=== PATIENT | male | born 1945 | race Caucasian/White ===

== ENCOUNTER 2018-08-02 21:00 | Inpatient (IN) | payer MEDICARE, BC | END 2018-08-07 13:30 | disposition home or self-care (01) | LOC: PCU 3S 08-04 02:42 | PROC: 0JHD3XZ Insertion of Tunneled Vascular Access Device into Right Upper Arm Subcutaneous Tissue and Fascia, Percutaneous Approach (ICD-10-PCS; principal; 2018-08-05 08:32) | PROC: 03120ZD Bypass Innominate Artery to Upper Arm Vein, Open Approach (ICD-10-PCS; 2018-08-05 08:32) | PROC: 05HM33Z Insertion of Infusion Device into Right Internal Jugular Vein, Percutaneous Approach (ICD-10-PCS; 2018-08-05 08:32) | PROC: B543ZZA Ultrasonography of Right Jugular Veins, Guidance (ICD-10-PCS; 2018-08-05 08:32) | PROC: 5A1D70Z Performance of Urinary Filtration, Intermittent, Less than 6 Hours Per Day (ICD-10-PCS; 2018-08-05 08:32) | PROC: 03180ZF Bypass Left Brachial Artery to Lower Arm Vein, Open Approach (ICD-10-PCS; 2018-08-05 08:32) | DX: I12.9 Hypertensive chronic kidney disease with stage 1 through stage 4 chronic kidney disease, or unspecified chronic kidney disease (principal); N30.00 Acute cystitis without hematuria; N17.9 Acute kidney failure, unspecified; N18.4 Chronic kidney disease, stage 4 (severe); Z99.2 Dependence on renal dialysis ==

== ENCOUNTER 2018-11-19 06:19 | Day surgery (SDC) | payer MEDICARE, BC ==
[~2018-11-19] VITALS: Ht 180.3 cm; Wt 121.1 kg
[~2018-11-19 06:19] MED LIST: ALLO100T PO; ASPI-611 PO; ATOR20TA PO; CARV-50 PO; CHOL100062 PO; CLON-285 PO; CLON1PAT15 TOP; DILT180C PO; INSU100C10; LIRA0.6P2 SUBCUT; LISI40TA4 PO; TOP100T PO
[2018-11-19] MEDS ORDERED: normal saline 1000ml 1,000 ML IV SCH (06:45)
[2018-11-19 06:48] VITALS: BP 151/76
[2018-11-19] MEDS ORDERED: FURO80TA87 PO (06:49)
[2018-11-19] MEDS ORDERED: FOLI0.8T19 PO (06:49)
[2018-11-19] MEDS ORDERED: DILT-35 PO (06:49)
[2018-11-19 07:53] LABS: BASOPHILS # (AUTO) 0.1 X10'3 (0-0.2); BASOPHILS % (AUTO) 0.9 % (0-1); EOSINOPHILS # (AUTO) 0.3 X10'3 (0-0.9); EOSINOPHILS % (AUTO) 5.5 % (0-6); HEMATOCRIT 31.1 % (42.0-52.0); HEMOGLOBIN 10.7 g/dl (14.0-17.9); LYMPHOCYTES # (AUTO) 1.6 X10'3 (1.1-4.8); LYMPHOCYTES % (AUTO) 29.8 % (21-51); MEAN CORPUSCULAR HEMOGLOBIN 34.7 PG (27.0-31.0); MEAN CORPUSCULAR HGB CONC 34.3 g/dL (33.0-36.5); MEAN PLATELET VOLUME 7.5 FL (7.4-10.4); MONOCYTES # (AUTO) 0.6 X10'3 (0-0.9); MONOCYTES % (AUTO) 10.5 % (2-12); NEUTROPHILS # (AUTO) 2.9 X10'3 (1.8-7.7); NEUTROPHILS % (AUTO) 53.3 % (42-75); PLATELET COUNT 142 X10'3 (140-440); RED BLOOD COUNT 3.07 X10'6 (4.70-6.10); RED CELL DISTRIBUTION WIDTH 14.1 % (11.5-14.5); WHITE BLOOD COUNT 5.4 X10'3 (4.5-11.0)
[2018-11-19 08:00] LABS: ALBUMIN 3.3 G/DL (3.4-5.0); ANION GAP 8 (8-16); BLOOD UREA NITROGEN 76 MG/DL (7-18); BUN/CREATININE RATIO 9.2 (5.4-32.0); CALCIUM 9.1 MG/DL (8.5-10.1); CHLORIDE 105 MMOL/L (99-107); CREATININE 8.25 MG/DL (0.60-1.10); GLUCOSE 120 MG/DL (70-104); POTASSIUM 4.4 MMOL/L (3.5-5.1); SODIUM 143 MMOL/L (135-145); TOTAL CARBON DIOXIDE 29.8 MMOL/L (24-32); eGFR 6 ML/MIN
[2018-11-19] MEDS ORDERED: heparin 1,000 UNITS/NS 500ml 500 ML ICATH ONE (08:10)
[2018-11-19] MEDS ORDERED: midazolam 2 mg/2 ml injection IV PRN (08:10)
[2018-11-19] MEDS ORDERED: fentaNYL/PF 50MCG/1 ML 2ML syringe IV PRN (08:10)
[2018-11-19] MEDS ORDERED: LIDOcaine 1%/PF 5ML 10 MG/ML VIAL SQ ONE (08:10)
[2018-11-19] MEDS ORDERED: LIDOcaine 1%/PF 5ML 10 MG/ML VIAL ONE (08:46)
[2018-11-19] MEDS ORDERED: fentaNYL/PF 50MCG/1 ML 2ML syringe ONE ×2 (08:46→09:42)
[2018-11-19] MEDS ORDERED: midazolam 2 mg/2 ml injection ONE (08:46)
[2018-11-19] MEDS ORDERED: heparin 1,000 UNITS/NS 500ml 500 ML ONE (08:46)
[2018-11-19] MEDS ORDERED: iohexol 300mg/ml 100ml inj. ONE (08:47)
[2018-11-19 10:25] VITALS: BP 137/62
[2018-11-19 10:40] VITALS: BP 137/62
[2018-11-19 10:55] VITALS: BP 141/62
[2018-11-19 11:10] VITALS: BP 161/62
[2018-11-19 11:40] VITALS: BP 169/68
== END 2018-11-19 11:52 | disposition home or self-care (01) ==
LOC: SSTAY O 06:19
PROVIDERS: ATTEND Radiology Vascular & Interventional Radiology
DX: T82.858A Stenosis of other vascular prosthetic devices, implants and grafts, initial encounter (principal); E11.9 Type 2 diabetes mellitus without complications; Y83.8 Other surgical procedures as the cause of abnormal reaction of the patient, or of later complication, without mention of misadventure at the time of the procedure; Z88.8 Allergy status to other drugs, medicaments and biological substances; Z79.899 Other long term (current) drug therapy; Z79.82 Long term (current) use of aspirin; Z79.4 Long term (current) use of insulin; Z82.49 Family history of ischemic heart disease and other diseases of the circulatory system
CPT/HCPCS: 36415; 36902; 80048; 85025; 99152; 99153; C1725; C1769; C1894; J1644; J2001; J2250; J3010; Q9967

== ENCOUNTER 2020-06-04 06:26 | Day surgery (SDC) | payer MEDICARE, BC ==
[~2020-06-04] VITALS: Ht 180.3 cm; Wt 116.3 kg
[~2020-06-04 06:26] MED LIST changes: -CLON-285 PO; +CLON-565 PO; -CLON1PAT15 TOP; +DILT-35 PO; -DILT180C PO; +FOLI0.8T19 PO; +FURO80TA87 PO
[2020-06-04] MEDS ORDERED: albumin 25% 100mL bottle x 1 IV PRN (06:50)
[2020-06-04] MEDS ORDERED: normal saline 1000ml 1,000 ML IV PRN (06:50)
[2020-06-04 07:26] LABS: BASOPHILS % (AUTO) 0.8 % (0-1); EOSINOPHILS # (AUTO) 0.4 X10'3 (0-0.9); EOSINOPHILS % (AUTO) 7.8 % (0-6); HEMATOCRIT 30.4 % (42.0-52.0); HEMOGLOBIN 10.4 g/dl (14.0-17.9); LYMPHOCYTES # (AUTO) 1.3 X10'3 (1.1-4.8); LYMPHOCYTES % (AUTO) 22.7 % (21-51); MEAN CORPUSCULAR HGB CONC 34.4 g/dL (33.0-36.5); MEAN CORPUSCULAR VOLUME 101.5 FL (78-98); MEAN PLATELET VOLUME 7.5 FL (7.4-10.4); MONOCYTES # (AUTO) 0.5 X10'3 (0-0.9); MONOCYTES % (AUTO) 9.2 % (2-12); NEUTROPHILS # (AUTO) 3.3 X10'3 (1.8-7.7); NEUTROPHILS % (AUTO) 59.5 % (42-75); PLATELET COUNT 160 X10'3 (140-440); RED BLOOD COUNT 2.99 X10'6 (4.70-6.10); RED CELL DISTRIBUTION WIDTH 13.5 % (11.5-14.5); WHITE BLOOD COUNT 5.6 X10'3 (4.5-11.0)
[2020-06-04 08:13] LABS: ALBUMIN 3.5 G/DL (3.4-5.0); ANION GAP 12 (8-16); BLOOD UREA NITROGEN 38 MG/DL (7-18); CHLORIDE 104 MMOL/L (99-107); GLUCOSE 110 MG/DL (70-104); POTASSIUM 3.8 MMOL/L (3.5-5.1); SODIUM 143 MMOL/L (135-145); TOTAL CARBON DIOXIDE 27.1 MMOL/L (24-32); eGFR 10 ML/MIN
[2020-06-04] MEDS ORDERED: LIDOcaine 1%/PF 5ML 10 MG/ML VIAL ONE (08:22)
[2020-06-04] MEDS ORDERED: fentaNYL/PF 50MCG/1 ML 2ML syringe ONE (08:23)
[2020-06-04] MEDS ORDERED: heparin 1,000 UNITS/NS 500ml 500 ML ONE (08:23)
[2020-06-04] MEDS ORDERED: midazolam 2 mg/2 ml injection ONE (08:23)
[2020-06-04] MEDS ORDERED: iohexol 300mg/ml 100ml inj. ONE (08:23)
[2020-06-04 08:39] VITALS: BP 134/72
== END 2020-06-04 09:26 | disposition home or self-care (01) ==
LOC: SSTAY O 06:26
PROVIDERS: ATTEND Radiology Diagnostic Radiology
DX: T82.858A Stenosis of other vascular prosthetic devices, implants and grafts, initial encounter (principal); Z53.8 Procedure and treatment not carried out for other reasons; E11.22 Type 2 diabetes mellitus with diabetic chronic kidney disease; N18.6 End stage renal disease; N17.9 Acute kidney failure, unspecified; E78.5 Hyperlipidemia, unspecified; D63.1 Anemia in chronic kidney disease; Z98.890 Other specified postprocedural states; Z88.8 Allergy status to other drugs, medicaments and biological substances; Z79.82 Long term (current) use of aspirin; Z79.4 Long term (current) use of insulin; Z79.899 Other long term (current) drug therapy; Z83.3 Family history of diabetes mellitus; Y83.8 Other surgical procedures as the cause of abnormal reaction of the patient, or of later complication, without mention of misadventure at the time of the procedure; Y92.89 Other specified places as the place of occurrence of the external cause
CPT/HCPCS: 36415; 80048; 82948; 85025; J1644; J2250; J3010; Q9967

== ENCOUNTER 2020-07-02 06:36 | Day surgery (SDC) | payer MEDICARE, BC ==
[~2020-07-02] VITALS: Ht 180.3 cm; Wt 113.7 kg
[~2020-07-02 06:36] MED LIST changes: -CARV-50 PO; -DILT-35 PO; -LIRA0.6P2 SUBCUT; -LISI40TA4 PO
[2020-07-02 07:30] VITALS: BP 127/78
[2020-07-02] MEDS ORDERED: CALC667C5 PO (07:41)
[2020-07-02] MEDS ORDERED: LIRA0.6P2 SUBCUT (07:41)
[2020-07-02 07:45] LABS: BASOPHILS % (AUTO) 0.9 % (0-1); EOSINOPHILS # (AUTO) 0.3 X10'3 (0-0.9); EOSINOPHILS % (AUTO) 6.1 % (0-6); HEMOGLOBIN 12.5 g/dl (14.0-17.9); LYMPHOCYTES # (AUTO) 1.7 X10'3 (1.1-4.8); LYMPHOCYTES % (AUTO) 29.9 % (21-51); MEAN CORPUSCULAR HEMOGLOBIN 34.7 PG (27.0-31.0); MEAN CORPUSCULAR HGB CONC 33.8 g/dL (33.0-36.5); MEAN CORPUSCULAR VOLUME 102.5 FL (78-98); MEAN PLATELET VOLUME 7.5 FL (7.4-10.4); MONOCYTES # (AUTO) 0.5 X10'3 (0-0.9); MONOCYTES % (AUTO) 9.4 % (2-12); NEUTROPHILS # (AUTO) 3.1 X10'3 (1.8-7.7); NEUTROPHILS % (AUTO) 53.7 % (42-75); PLATELET COUNT 173 X10'3 (140-440); RED BLOOD COUNT 3.61 X10'6 (4.70-6.10); RED CELL DISTRIBUTION WIDTH 14.2 % (11.5-14.5); WHITE BLOOD COUNT 5.7 X10'3 (4.5-11.0)
[2020-07-02 07:50] LABS: ALBUMIN 4.1 G/DL (3.4-5.0); ANION GAP 10 (8-16); BLOOD UREA NITROGEN 39 MG/DL (7-18); CHLORIDE 102 MMOL/L (99-107); CREATININE 5.61 MG/DL (0.60-1.10); GLUCOSE 100 MG/DL (70-104); POTASSIUM 3.8 MMOL/L (3.5-5.1); SODIUM 141 MMOL/L (135-145); TOTAL CARBON DIOXIDE 29.4 MMOL/L (24-32); eGFR 10 ML/MIN
[2020-07-02] MEDS ORDERED: normal saline 1000ml 1,000 ML IV PRN (08:05)
[2020-07-02] MEDS ORDERED: tPA-cathflo 2 MG/2 ml IV flush ONE (08:28)
[2020-07-02] MEDS ORDERED: LIDOcaine 1%/PF 5ML 10 MG/ML VIAL ONE (08:59)
[2020-07-02] MEDS ORDERED: midazolam 2 mg/2 ml injection ONE ×3 (08:59→10:48)
[2020-07-02] MEDS ORDERED: heparin 1,000 UNITS/NS 500ml 500 ML ONE ×2 (09:00→10:33)
[2020-07-02] MEDS ORDERED: fentaNYL/PF 50MCG/1 ML 2ML syringe ONE ×3 (09:00→10:48)
[2020-07-02] MEDS ORDERED: iohexol 300mg/ml 100ml inj. ONE ×2 (09:00→10:33)
[2020-07-02] MEDS ORDERED: heparin 1,000unit/ml 10ml vial 10 ML ONE (10:02)
[2020-07-02] MEDS ORDERED: diphenhydrAMINE 50 mg/ml inj ONE (10:19)
[2020-07-02 11:34] VITALS: BP 165/92
[2020-07-02] MEDS ORDERED: normal saline 1000ml 1,000 ML IV SCH (11:35)
[2020-07-02 11:46] VITALS: BP 169/98
[2020-07-02 12:01] VITALS: BP 137/64
[2020-07-02 12:15] VITALS: BP 142/65
[2020-07-02 12:23] VITALS: BP 132/66
== END 2020-07-02 12:35 | disposition home or self-care (01) ==
LOC: SSTAY O 06:36
PROVIDERS: ATTEND Radiology Vascular & Interventional Radiology
DX: T82.868A Thrombosis due to vascular prosthetic devices, implants and grafts, initial encounter (principal); N18.6 End stage renal disease; Z99.2 Dependence on renal dialysis; D63.1 Anemia in chronic kidney disease; Z79.899 Other long term (current) drug therapy; Z79.4 Long term (current) use of insulin; Z72.89 Other problems related to lifestyle; Z88.8 Allergy status to other drugs, medicaments and biological substances; Y83.2 Surgical operation with anastomosis, bypass or graft as the cause of abnormal reaction of the patient, or of later complication, without mention of misadventure at the time of the procedure; Y92.89 Other specified places as the place of occurrence of the external cause
CPT/HCPCS: 36415; 36902; 76937; 80048; 85025; 85610; C1725; C1769; C1894; J1200; J1644; J2250; J2997; J3010; Q9967; 99152; 99153

== ENCOUNTER 2020-11-01 06:26 | Emergency (ER) | payer MEDICARE, BC ==
[~2020-11-01] VITALS: Ht 180.3 cm; Wt 114.5 kg
[~2020-11-01 06:26] MED LIST changes: +CALC667C5 PO; +LIRA0.6P2 SUBCUT
[2020-11-01 09:19] LABS: BASOPHILS % (AUTO) 0.6 % (0-1); EOSINOPHILS # (AUTO) 0.2 X10'3 (0-0.9); EOSINOPHILS % (AUTO) 3.5 % (0-6); HEMATOCRIT 30.4 % (42.0-52.0); HEMOGLOBIN 10.4 g/dl (14.0-17.9); LYMPHOCYTES # (AUTO) 0.8 X10'3 (1.1-4.8); LYMPHOCYTES % (AUTO) 14.9 % (21-51); MEAN CORPUSCULAR HEMOGLOBIN 35.3 PG (27.0-31.0); MEAN CORPUSCULAR HGB CONC 34.4 g/dL (33.0-36.5); MEAN CORPUSCULAR VOLUME 102.8 FL (78-98); MEAN PLATELET VOLUME 7.6 FL (7.4-10.4); MONOCYTES # (AUTO) 0.5 X10'3 (0-0.9); NEUTROPHILS # (AUTO) 3.6 X10'3 (1.8-7.7); PLATELET COUNT 121 X10'3 (140-440); RED BLOOD COUNT 2.96 X10'6 (4.70-6.10); RED CELL DISTRIBUTION WIDTH 12.8 % (11.5-14.5); WHITE BLOOD COUNT 5.1 X10'3 (4.5-11.0)
[2020-11-01] MEDS ORDERED: morphine 4 MG/ML inj SYRINge IV ONE (09:25)
[2020-11-01] MEDS ORDERED: ondansetron/PF 4mg/2ml inj IV ONE (09:25)
[2020-11-01 09:33] LABS: ALANINE AMINOTRANSFERASE 24 U/L (12-78); ALBUMIN 3.5 G/DL (3.4-5.0); ALBUMIN/GLOBULIN RATIO 1.1 (1.1-1.5); ALKALINE PHOSPHATASE 102 IU/L (46-116); ANION GAP 11 (8-16); ASPARTATE AMINO TRANSFERASE 15 U/L (10-37); BILIRUBIN,TOTAL 0.6 MG/DL (0.1-1.0); BLOOD UREA NITROGEN 92 MG/DL (7-18); BUN/CREATININE RATIO 10.2 (5.4-32.0); CALCIUM 8.6 MG/DL (8.5-10.1); CHLORIDE 104 MMOL/L (99-107); CREATININE 8.98 MG/DL (0.60-1.10); GLUCOSE 135 MG/DL (70-104); POTASSIUM 3.3 MMOL/L (3.5-5.1); SODIUM 142 MMOL/L (135-145); TOTAL CARBON DIOXIDE 26.6 MMOL/L (24-32); TOTAL PROTEIN 6.6 G/DL (6.4-8.2); eGFR 6 ML/MIN
[2020-11-01] MEDS ORDERED: potassium Cl 20 mEq SR tablet PO STA (09:40)
[2020-11-01] MEDS ORDERED: acetaminophen 325mg tablet PO PRN ×2 (12:30)
[2020-11-01] MEDS ORDERED: HYDROcodone/acetaminophen 10/325mg tab PO PRN (12:30)
[2020-11-01] MEDS ORDERED: ondansetron/PF 4mg/2ml inj IV PRN (12:30)
[2020-11-01] MEDS ORDERED: magnesium hydroxide 30ml (MOM) UD suspension PO PRN (12:30)
[2020-11-01] MEDS ORDERED: mag hydrox/Alum hydrox/simeth 30ml oral suspension PO PRN (12:30)
[2020-11-01] MEDS ORDERED: HYDROcodone/acetaminophen 5mg/325mg tablet PO PRN (12:30)
[2020-11-01] MEDS ORDERED: morphine 2 MG/ML inj. syringe IV PRN ×2 (12:30)
--- NOTE | 2020-11-01 14:46 | NUR ---
ANGIO STAFF BEDSIDE; FANTA PARRA EN ROUTE TO ADMNISTER TPA. PT RESTING COMFORTABLY, NO APPARENT DISTRESS @ THIS TIME.
--- NOTE | 2020-11-01 15:10 | NUR ---
TPA instilled by Dr Bravo.
[2020-11-01] MEDS ORDERED: tPA-cathflo 2mg/2ml IV flush 2 MG in normal saline 100ml IV soln 100 ML IVF ONE (15:15)
--- NOTE | 2020-11-01 15:33 | NUR ---
report given by RN, assumed care.
--- NOTE | 2020-11-01 16:55 | NUR ---
PAGED HOSPITALIST TO GET D/C PAPERWORK.
[2020-11-01 16:56] VITALS: BP 143/111
--- NOTE | 2020-11-01 17:07 | NUR ---
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 PT WANTS TO LEAVE NOW. WRAPPER SELECTOR AWARE. PT AWARE HE WILL LEAVE WITHOUT D/C PAPERWORK AND VERBALIZED UNDERSTANDING. PT TO HOME IN NAD WITH FEMALE FRIEND AND ALL PERSONAL ITEMS WITH PT. AMBULATORY, STEADY GAIT
== END 2020-11-01 17:14 | disposition left against medical advice (07) ==
LOC: ER 06:27 → UNDOADMIN 12:28 → ED HOLD 12:28 → UNDODISIN 17:37
DX: T82.868A Thrombosis due to vascular prosthetic devices, implants and grafts, initial encounter (principal); N18.6 End stage renal disease; I82.612 Acute embolism and thrombosis of superficial veins of left upper extremity; D64.9 Anemia, unspecified; Z53.29 Procedure and treatment not carried out because of patient's decision for other reasons; E87.6 Hypokalemia; Y83.2 Surgical operation with anastomosis, bypass or graft as the cause of abnormal reaction of the patient, or of later complication, without mention of misadventure at the time of the procedure; Y92.89 Other specified places as the place of occurrence of the external cause; Z99.2 Dependence on renal dialysis; Z79.82 Long term (current) use of aspirin; Z88.8 Allergy status to other drugs, medicaments and biological substances; Z83.3 Family history of diabetes mellitus; Z79.899 Other long term (current) drug therapy
CPT/HCPCS: 36415; 37212; 76937; 80053; 85025; 93005; 93971; 96374; 96375; 99285; J2270; J2405; G0378

== ENCOUNTER 2020-11-03 12:39 | Day surgery (SDC) | payer MEDICARE, BC ==
[~2020-11-03] VITALS: Ht 180.3 cm; Wt 116.2 kg
[~2020-11-03 12:39] MED LIST changes: +tPA-cathflo 2 MG/2 ml IV flush ONE
[2020-11-03] MEDS ORDERED: normal saline 1000ml 1,000 ML IV PRN (13:10)
[2020-11-03 13:39] LABS: ALANINE AMINOTRANSFERASE 23 U/L (12-78); ALBUMIN 3.3 G/DL (3.4-5.0); ALBUMIN/GLOBULIN RATIO 1.1 (1.1-1.5); ALKALINE PHOSPHATASE 80 IU/L (46-116); ANION GAP 18 (8-16); ASPARTATE AMINO TRANSFERASE 11 U/L (10-37); BILIRUBIN,TOTAL 0.5 MG/DL (0.1-1.0); BLOOD UREA NITROGEN 105 MG/DL (7-18); BUN/CREATININE RATIO 10.1 (5.4-32.0); CALCIUM 8.6 MG/DL (8.5-10.1); CHLORIDE 107 MMOL/L (99-107); CREATININE 10.43 MG/DL (0.60-1.10); GLUCOSE 98 MG/DL (70-104); POTASSIUM 3.5 MMOL/L (3.5-5.1); SODIUM 149 MMOL/L (135-145); TOTAL CARBON DIOXIDE 24.2 MMOL/L (24-32); TOTAL PROTEIN 6.4 G/DL (6.4-8.2); eGFR 5 ML/MIN
[2020-11-03 14:46] VITALS: BP 149/79
[2020-11-03] MEDS ORDERED: iohexol 300mg/ml 100ml inj. ONE (15:09)
[2020-11-03] MEDS ORDERED: LIDOcaine 1%/PF 5ML 10 MG/ML VIAL ONE ×2 (15:09→16:06)
[2020-11-03] MEDS ORDERED: fentaNYL/PF 50MCG/1 ML 2ML syringe ONE (15:14)
[2020-11-03] MEDS ORDERED: midazolam 1 mg/ML 2ml injection ONE (15:14)
[2020-11-03] MEDS ORDERED: heparin 1,000 UNITS/NS 500ml 500 ML ONE (15:19)
[2020-11-03] MEDS ORDERED: heparin 1,000unit/ml 10ml vial 10 ML ONE (16:12)
[2020-11-03 16:52] VITALS: BP 133/71
[2020-11-03 17:00] VITALS: BP 131/67
[2020-11-03 17:15] VITALS: BP 138/73
[2020-11-03 17:30] VITALS: BP 139/66
[2020-11-03 17:45] VITALS: BP 127/62
== END 2020-11-03 18:00 | disposition home or self-care (01) ==
LOC: SSTAY O 12:39
PROVIDERS: ATTEND Radiology Diagnostic Radiology
DX: T82.858A Stenosis of other vascular prosthetic devices, implants and grafts, initial encounter (principal); M79.622 Pain in left upper arm; Y83.8 Other surgical procedures as the cause of abnormal reaction of the patient, or of later complication, without mention of misadventure at the time of the procedure; Y92.89 Other specified places as the place of occurrence of the external cause
CPT/HCPCS: 36415; 36558; 36901; 76937; 80053; C1750; C1769; C1894; J1644; J2250; J2997; J3010; Q9967; 99152; 99153

== ENCOUNTER → 2020-12-02 | Day surgery (SDC) | payer MEDICARE, BC ==
[2020-11-26 14:51] LABS: BASOPHILS % (AUTO) 0.7 % (0-1); EOSINOPHILS # (AUTO) 0.2 X10'3 (0-0.9); EOSINOPHILS % (AUTO) 3.1 % (0-6); LYMPHOCYTES # (AUTO) 0.9 X10'3 (1.1-4.8); LYMPHOCYTES % (AUTO) 16.9 % (21-51); MEAN CORPUSCULAR HEMOGLOBIN 35.3 PG (27.0-31.0); MEAN CORPUSCULAR HGB CONC 34.1 g/dL (33.0-36.5); MEAN CORPUSCULAR VOLUME 103.4 FL (78-98); MEAN PLATELET VOLUME 7.5 FL (7.4-10.4); MONOCYTES # (AUTO) 0.6 X10'3 (0-0.9); MONOCYTES % (AUTO) 10.9 % (2-12); NEUTROPHILS # (AUTO) 3.5 X10'3 (1.8-7.7); NEUTROPHILS % (AUTO) 68.4 % (42-75); PRE OP PLATELET COUNT 141 X10'3 (140-440); RED CELL DISTRIBUTION WIDTH 13.1 % (11.5-14.5)
[2020-11-26 14:56] LABS: PRE OP HEMOGLOBIN 10.2 g/dL (14.0-17.9)
[2020-11-26 15:00] LABS: ALBUMIN 3.7 G/DL (3.4-5.0); ALBUMIN/GLOBULIN RATIO 1.1 (1.1-1.5); ALKALINE PHOSPHATASE 97 IU/L (46-116); BLOOD UREA NITROGEN 41 MG/DL (7-18); BUN/CREATININE RATIO 7.7 (5.4-32.0); CALCIUM 8.9 MG/DL (8.5-10.1); CHLORIDE 102 MMOL/L (99-107); PRE OP ALT 29 U/L (30-65); PRE OP ANION GAP 10 (8-16); PRE OP AST 20 U/L (10-37); PRE OP BILIRUB, TOTAL 0.7 MG/DL (0.0-1.0); PRE OP GLUCOSE 118 MG/DL (70-104); PRE OP SODIUM 142 MMOL/L (135-145); TOTAL CARBON DIOXIDE 29.8 MMOL/L (24-32); eGFR 11 ML/MIN
[2020-11-26 15:11] LABS: COLOR,URINE YELLOW (Yellow); GLUCOSE, URINE NEGATIVE (Neg); KETONES,URINE NEGATIVE (Neg); LEUKOCYTE ESTERASE ,URINE MODERATE (Neg); NITRITES, URINE NEGATIVE (Neg); OCCULT BLOOD,URINE TRACE-INTACT (Neg); PH,URINE 6.5 (4.8-8.0); PROTEIN,URINE 30 mg/dl (Neg); UROBILINOGEN,URINE 0.2 E.U/dL (0.2-1.0)
[2020-11-26 15:12] LABS: CLARITY,URINE SLIGHTLY CLOUDY (Clear); UA COLLECTION TYPE CLN CATCH MIDSTREAM
[2020-11-26 15:13] LABS: WBC,URINE TNTC /HPF (0-4)
[2020-11-26 15:14] LABS: BACTERIA,URINE 2+ /HPF (Neg); MUCUS STRANDS NONE SEEN /LPF (Neg); SQUAMOUS EPITHELIAL CELL,UR FEW /LPF (FEW); WBC CLUMPS,URINE FEW /HPF (NEGATIVE)
[2020-12-02] VITALS (8 sets, daily range): BP systolic 133–153; BP diastolic 65–81
[~2020-12-02] VITALS: Ht 180.3 cm; Wt 109.2 kg
[~2020-12-02] MED LIST changes: +HYDROmorphone/PF 0.2 MG/ML SYRINGE IV PRN; +LIDOcaine 2% (20mg/ml) 5ml vial ONE; +cefazolin/dext.iso 2gm/100ml IV ONE; +famotidine 20mg tablet PO ONE; +fentaNYL/PF 50MCG/1 ML 2ML syringe ONE; +glycopyrrolate 0.2mg/ml inj ONE; +morphine 2 MG/ML inj. syringe IV PRN; +neostigmine methylsulfate 1 MG/ML 10ml vial ONE; +normal saline 1000ml 1,000 ML IV SCH; +ondansetron/PF 4mg/2ml inj IV PRN; +ondansetron/PF 4mg/2ml inj ONE; +propofol inj 20 ML IV ONE; +ringers solution, lacted 1,000 ML IV SCH; +rocuronium 10mg/ml inj IV ONE; +sevoflurane 250ml liquid IH ONE; -tPA-cathflo 2 MG/2 ml IV flush ONE
--- NOTE | 2020-12-02 17:00 | NUR ---
Received from OR via , accompanied by Anesthesiologist DR MURPHY and report given by Anesthesiolgist. PT PRESENTS WITH PIV 20G RIGHT WRIST, ISLAND DRESSING O UPPER LEFT ARM DRY AND INTACT. VSS. Addendum: 12/02/20 at 1709 by Regi Jeff RN, RN Amended: Links added.
--- NOTE | 2020-12-02 18:00 | NUR ---
DISCHARGE CRITERIA MET, DISCHARGE INSTRUCTIONS GIVEN, DEMONSTRATES VERBAL UNDERSTANDING. DISCHARGED HOME IN GOOD CONDITION. Addendum: 12/02/20 at 1817 by Regi Jeff RN, RN Amended: Links added.
== END | disposition home or self-care (01) ==
LOC: PAS 08:50
PROVIDERS: ATTEND Surgery
DX: E11.22 Type 2 diabetes mellitus with diabetic chronic kidney disease (principal); I13.2 Hypertensive heart and chronic kidney disease with heart failure and with stage 5 chronic kidney disease, or end stage renal disease; N18.6 End stage renal disease; I50.9 Heart failure, unspecified; G47.33 Obstructive sleep apnea (adult) (pediatric); F43.10 Post-traumatic stress disorder, unspecified; M10.9 Gout, unspecified; Z98.890 Other specified postprocedural states; Z88.8 Allergy status to other drugs, medicaments and biological substances; Z99.2 Dependence on renal dialysis; Z79.899 Other long term (current) drug therapy; Z79.82 Long term (current) use of aspirin; Z82.49 Family history of ischemic heart disease and other diseases of the circulatory system
CPT/HCPCS: 36415; 36832; 80053; 81001; 82948; 85025; 87077; 87088; 87186; C1768; J2001; J2270; J2405; J2704; J2710; J3010; J7030; J7040; A4215; A4618; A7000; J3490; J7120

== ENCOUNTER 2023-02-10 08:23 | Day surgery (SDC) | payer MEDICARE, BC ==
[~2023-02-10] VITALS: Ht 180.3 cm; Wt 111.5 kg
[~2023-02-10 08:23] MED LIST changes: -HYDROmorphone/PF 0.2 MG/ML SYRINGE IV PRN; -LIDOcaine 2% (20mg/ml) 5ml vial ONE; -cefazolin/dext.iso 2gm/100ml IV ONE; -famotidine 20mg tablet PO ONE; -fentaNYL/PF 50MCG/1 ML 2ML syringe ONE; -glycopyrrolate 0.2mg/ml inj ONE; -morphine 2 MG/ML inj. syringe IV PRN; -neostigmine methylsulfate 1 MG/ML 10ml vial ONE; -normal saline 1000ml 1,000 ML IV SCH; -ondansetron/PF 4mg/2ml inj IV PRN; -ondansetron/PF 4mg/2ml inj ONE; -propofol inj 20 ML IV ONE; -ringers solution, lacted 1,000 ML IV SCH; -rocuronium 10mg/ml inj IV ONE; -sevoflurane 250ml liquid IH ONE
[2023-02-10] MEDS ORDERED: albumin 25% 100mL bottle x 1 IV PRN (08:55)
[2023-02-10 09:04] VITALS: BP 158/83; PULSE 69; RESP 12; TEMP 97.4; O2SAT 97
[2023-02-10 09:38] LABS: BASOPHILS % (AUTO) 0.9 % (0-1); EOSINOPHILS # (AUTO) 0.2 X10'3 (0-0.9); EOSINOPHILS % (AUTO) 5.5 % (0-6); HEMOGLOBIN 10.5 g/dl (14.0-17.9); LYMPHOCYTES # (AUTO) 0.9 X10'3 (1.1-4.8); MEAN CORPUSCULAR HEMOGLOBIN 33.1 PG (27.0-31.0); MEAN CORPUSCULAR HGB CONC 32.8 g/dL (33.0-36.5); MEAN CORPUSCULAR VOLUME 100.8 FL (78-98); MEAN PLATELET VOLUME 7.4 FL (7.4-10.4); MONOCYTES # (AUTO) 0.3 X10'3 (0-0.9); MONOCYTES % (AUTO) 7.3 % (2-12); NEUTROPHILS # (AUTO) 2.7 X10'3 (1.8-7.7); NEUTROPHILS % (AUTO) 65.3 % (42-75); PLATELET COUNT 119 X10'3 (140-440); RED BLOOD COUNT 3.18 X10'6 (4.70-6.10); RED CELL DISTRIBUTION WIDTH 13.8 % (11.5-14.5); WHITE BLOOD COUNT 4.2 X10'3 (4.5-11.0)
[2023-02-10] MEDS ORDERED: iohexol 300mg/ml 100ml inj. ONE (09:42)
[2023-02-10] MEDS ORDERED: heparin 1,000 UNITS/NS 500ml 500 ML ONE (09:42)
[2023-02-10] MEDS ORDERED: fentaNYL/PF 50MCG/1 ML 2ML syringe ONE (09:42)
[2023-02-10] MEDS ORDERED: LIDOcaine 1% 30ml preserv. free vial ONE (09:42)
[2023-02-10 09:44] LABS: PROTHROMBIN TIME 10.6 SECONDS (9.0-12.0)
[2023-02-10 09:45] LABS: ALBUMIN 4.1 G/DL (3.4-5.0); ANION GAP 14 (8-16); BLOOD UREA NITROGEN 77 MG/DL (7-18); BUN/CREATININE RATIO 9.8 (10.0-20.0); CALCIUM 9.8 MG/DL (8.5-10.1); CHLORIDE 106 MMOL/L (99-107); CREATININE 7.86 MG/DL (0.60-1.10); GLUCOSE 115 MG/DL (70-104); POTASSIUM 3.8 MMOL/L (3.5-5.1); SODIUM 146 MMOL/L (135-145); TOTAL CARBON DIOXIDE 26.3 MMOL/L (24-32); eCRCL 8 ML/MIN; eGFR 7 ML/MIN
[2023-02-10 11:34] VITALS: BP 151/90; PULSE 65; RESP 14; O2SAT 96
[2023-02-10 11:49] VITALS: BP 157/78; PULSE 63; RESP 15; O2SAT 94
[2023-02-10 12:04] VITALS: BP 151/78; PULSE 63; RESP 14; O2SAT 96
[2023-02-10 12:19] VITALS: BP 143/78; PULSE 63; RESP 15; O2SAT 92
[2023-02-10 12:34] VITALS: BP 139/75; PULSE 61; RESP 14; O2SAT 96
== END 2023-02-10 12:45 | disposition home or self-care (01) ==
LOC: SSTAY O 08:23
PROVIDERS: ATTEND Radiology Vascular & Interventional Radiology
DX: T82.858A Stenosis of other vascular prosthetic devices, implants and grafts, initial encounter (principal); E11.22 Type 2 diabetes mellitus with diabetic chronic kidney disease; I12.0 Hypertensive chronic kidney disease with stage 5 chronic kidney disease or end stage renal disease; N18.6 End stage renal disease; Z88.8 Allergy status to other drugs, medicaments and biological substances; Z79.82 Long term (current) use of aspirin; Z79.4 Long term (current) use of insulin; Z79.899 Other long term (current) drug therapy; Z83.3 Family history of diabetes mellitus
CPT/HCPCS: 36415; 36901; 36907; 80048; 82948; 85025; 85610; 99152; 99153; C1769; C2623; J1644; J3010; J3490; J7030; Q9967; 36902; A4620; A6213; C1725; C1894

== ENCOUNTER 2023-05-31 11:46 | Day surgery (SDC) | payer MEDICARE, BC ==
[~2023-05-31] VITALS: Ht 180.3 cm; Wt 111.2 kg
[2023-05-31 12:05] VITALS: BP 172/79; PULSE 65; RESP 16; TEMP 98; O2SAT 100
[2023-05-31] MEDS ORDERED: normal saline 1000ml 1,000 ML IV PRN (12:15)
[2023-05-31] MEDS ORDERED: SUCR500T PO (12:25)
[2023-05-31 13:07] LABS: BASOPHILS % (AUTO) 0.6 % (0-1); EOSINOPHILS # (AUTO) 0.4 X10'3 (0-0.9); EOSINOPHILS % (AUTO) 7.2 % (0-6); HEMOGLOBIN 12.7 g/dl (14.0-17.9); LYMPHOCYTES % (AUTO) 19.2 % (21-51); MEAN CORPUSCULAR HGB CONC 33.4 g/dL (33.0-36.5); MEAN CORPUSCULAR VOLUME 101.7 FL (78-98); MEAN PLATELET VOLUME 7.4 FL (7.4-10.4); MONOCYTES # (AUTO) 0.3 X10'3 (0-0.9); MONOCYTES % (AUTO) 6.7 % (2-12); NEUTROPHILS # (AUTO) 3.3 X10'3 (1.8-7.7); NEUTROPHILS % (AUTO) 66.3 % (42-75); PLATELET COUNT 135 X10'3 (140-440); RED BLOOD COUNT 3.74 X10'6 (4.70-6.10); RED CELL DISTRIBUTION WIDTH 14.1 % (11.5-14.5)
[2023-05-31 13:21] LABS: PROTHROMBIN TIME 10.3 SECONDS (9.0-12.0)
[2023-05-31] MEDS ORDERED: fentaNYL/PF 50MCG/1 ML 2ML syringe ONE (13:43)
[2023-05-31] MEDS ORDERED: midazolam 1 mg/ML 2ml injection ONE (13:43)
[2023-05-31] MEDS ORDERED: LIDOcaine 1% 30ml preserv. free vial ONE (13:58)
[2023-05-31] MEDS ORDERED: tPA-cathflo 2 MG/2 ml IV flush ONE ×3 (14:17→15:35)
[2023-05-31] MEDS ORDERED: heparin 1,000 UNITS/NS 500ml 500 ML ONE (14:57)
[2023-05-31] MEDS ORDERED: iohexol 300mg/ml 100ml inj. ONE (14:57)
[2023-05-31 16:00] VITALS: BP 162/90; PULSE 57; RESP 16; O2SAT 100
[2023-05-31 16:15] VITALS: BP 170/82; PULSE 54; RESP 15; O2SAT 96
[2023-05-31 16:30] VITALS: BP 192/77; PULSE 48; RESP 15; O2SAT 98
[2023-05-31 16:45] VITALS: BP 186/72; PULSE 52; RESP 16; O2SAT 97
== END 2023-05-31 17:05 | disposition home or self-care (01) ==
LOC: SSTAY O 11:46
PROVIDERS: ATTEND Radiology Vascular & Interventional Radiology
DX: T82.868A Thrombosis due to vascular prosthetic devices, implants and grafts, initial encounter (principal); E11.22 Type 2 diabetes mellitus with diabetic chronic kidney disease; I12.0 Hypertensive chronic kidney disease with stage 5 chronic kidney disease or end stage renal disease; N18.6 End stage renal disease; Z79.4 Long term (current) use of insulin; Z79.899 Other long term (current) drug therapy; Z88.8 Allergy status to other drugs, medicaments and biological substances; Z83.3 Family history of diabetes mellitus; Y83.2 Surgical operation with anastomosis, bypass or graft as the cause of abnormal reaction of the patient, or of later complication, without mention of misadventure at the time of the procedure; Y92.89 Other specified places as the place of occurrence of the external cause
CPT/HCPCS: 36415; 36558; 36905; 76937; 77001; 82948; 85025; 85610; 99152; 99153; C1750; C2628; J1644; J2250; J2997; J3010; J3490; J7030; Q9967; A4620; A6213; A6449; A9270; C1757; C1769; C1894; C2623

== ENCOUNTER 2023-08-02 11:31 | Day surgery (SDC) | payer MEDICARE, BC ==
[2023-07-26 16:06] LABS: BILIRUBIN,URINE NEGATIVE (Neg); CLARITY,URINE SLIGHTLY CLOUDY (Clear); COLOR,URINE YELLOW (Yellow); GLUCOSE, URINE NEGATIVE (Neg); KETONES,URINE TRACE mg/dl (Neg); LEUKOCYTE ESTERASE ,URINE TRACE (Neg); NITRITES, URINE NEGATIVE (Neg); OCCULT BLOOD,URINE NEGATIVE (Neg); PROTEIN,URINE TRACE mg/dl (Neg); UROBILINOGEN,URINE 0.2 E.U/dL (0.2-1.0)
[2023-07-26 16:09] LABS: UA COLLECTION TYPE VOIDED
[2023-07-26 16:10] LABS: BASOPHILS % (AUTO) 0.9 % (0-1); EOSINOPHILS # (AUTO) 0.5 X10'3 (0-0.9); EOSINOPHILS % (AUTO) 10.8 % (0-6); LYMPHOCYTES % (AUTO) 22.8 % (21-51); MEAN CORPUSCULAR HGB CONC 33.8 g/dL (33.0-36.5); MEAN CORPUSCULAR VOLUME 100.6 FL (78-98); MEAN PLATELET VOLUME 7.5 FL (7.4-10.4); MONOCYTES # (AUTO) 0.4 X10'3 (0-0.9); MONOCYTES % (AUTO) 8.4 % (2-12); NEUTROPHILS # (AUTO) 2.4 X10'3 (1.8-7.7); NEUTROPHILS % (AUTO) 57.1 % (42-75); PRE OP HEMATOCRIT 35.4 % (42.0-52.0); PRE OP PLATELET COUNT 134 X10'3 (140-440); PRE OP WHITE BLOOD COUNT 4.2 10'3 (4.8-10.8); RED BLOOD COUNT 3.52 X10'6 (4.70-6.10); RED CELL DISTRIBUTION WIDTH 14.3 % (11.5-14.5)
[2023-07-26 16:15] LABS: HYALINE CASTS 0-3 /LPF (NEGATIVE); SQUAMOUS EPITHELIAL CELL,UR FEW /LPF (FEW); TRANSITIONAL EPI CELLS,URINE FEW /HPF
[2023-07-26 16:20] LABS: BACTERIA,URINE FEW /HPF (Neg); RBC,URINE 0-2 /HPF (0-2)
[2023-07-26 16:22] LABS: FINE GRANULAR CAST 0-3 /LPF (NEGATIVE)
[2023-07-26 16:23] LABS: WBC,URINE 20-30 /HPF (0-4)
[2023-07-26 16:25] LABS: CAL OXALATE CRYSTALS FEW /HPF (NEGATIVE)
[2023-07-26 16:26] LABS: AMORPHOUS URATES 2+; MUCUS STRANDS FEW /LPF (Neg)
[2023-07-26 16:43] LABS: ALBUMIN 3.7 G/DL (3.4-5.0); ALBUMIN/GLOBULIN RATIO 1.4 (1.1-1.5); ALKALINE PHOSPHATASE 108 IU/L (46-116); BLOOD UREA NITROGEN 47 MG/DL (7-18); CALCIUM 8.8 MG/DL (8.5-10.1); CHLORIDE 104 MMOL/L (99-107); CREATININE 5.23 MG/DL (0.60-1.10); PRE OP ALT 37 U/L (30-65); PRE OP ANION GAP 8 (8-16); PRE OP AST 21 U/L (10-37); PRE OP BILIRUB, TOTAL 0.7 MG/DL (0.0-1.0); PRE OP GLUCOSE 156 MG/DL (70-104); PRE OP POTASSIUM 3.8 MMOL/L (3.4-5.1); PRE OP SODIUM 142 MMOL/L (135-145); TOTAL CARBON DIOXIDE 30.3 MMOL/L (24-32); TOTAL PROTEIN 6.4 G/DL (6.4-8.2); eGFR 11 ML/MIN
[2023-08-02] VITALS (9 sets, daily range): BP systolic 147–168; BP diastolic 77–87; PULSE 71–84; RESP 11–18; TEMP 98.9; O2SAT 98–100
[~2023-08-02] VITALS: Ht 180.3 cm; Wt 109.0 kg
[2023-08-02] MEDS: cefazolin 2gm/D5W 100mL 100 ML IV ONE (05:30)
[2023-08-02] MEDS: famotidine 20mg tablet PO ONE (05:30)
[~2023-08-02 11:31] MED LIST changes: -ASPI-611 PO; -CALC667C5 PO; +SUCR500T PO; +normal saline 1000ml 1,000 ML IV SCH
[2023-08-02 12:23] LABS: ISTAT CREATININE 5.4 mg/dL (0.8-1.3); ISTAT HGB 12.9 g/dl (14.0-17.9); ISTAT IONIZED CALCIUM 1.17 mmol/L (1.03-1.32); ISTAT K 3.7 mmol/L (3.5-5.1); POC BUN/CREATININE RATIO 6.3 (5.4-32.0)
[2023-08-02] MEDS ORDERED: BUPIVAcaine 2.5mg/ml inj 50ml vial (contains preservative) ONE (17:54)
[2023-08-02] MEDS ORDERED: LIDOcaine 1% W/epiNEPHrine 1:100,000 20ml vial ONE (17:54)
[2023-08-02] MEDS ORDERED: heparin 10,000 units/1 ML INJ ONE (17:54)
[2023-08-02] MEDS ORDERED: ondansetron/PF 4mg/2ml inj IV PRN (17:55)
[2023-08-02] MEDS ORDERED: labetalol 20mg/4ml (5mg/ml) syringe IV PRN (17:55)
[2023-08-02] MEDS ORDERED: normal saline 1000ml 1,000 ML IV ONE (17:55)
[2023-08-02] MEDS ORDERED: hydrALAZINE 20mg/ml inj. IV PRN (17:55)
[2023-08-02] MEDS ORDERED: proCHLORperazine 10 MG/2 ml inj IV PRN (17:55)
[2023-08-02] MEDS ORDERED: morphine 2 MG/ML inj. syringe IV PRN (17:55)
[2023-08-02] MEDS ORDERED: HYDROmorphone/PF 0.2 MG/ML SYRINGE IV PRN (17:55)
[2023-08-02] MEDS ORDERED: midazolam 1 mg/ML 2ml injection ONE (18:05)
[2023-08-02] MEDS ORDERED: fentaNYL/PF 50MCG/1 ML 2ML syringe ONE (18:05)
[2023-08-02] MEDS ORDERED: ondansetron/PF 4mg/2ml inj ONE (18:08)
[2023-08-02] MEDS ORDERED: sevoflurane 250ml liquid IH ONE (18:08)
[2023-08-02] MEDS ORDERED: 0.9 % SODIUM CHLORIDE 10 ML VIAL ONE (18:38)
[2023-08-02] MEDS ORDERED: ePHEDrine 50MG/ML INJ. ONE (18:38)
[2023-08-02] MEDS ORDERED: LIDOcaine 2% (20mg/ml) 5ml vial ONE (18:38)
[2023-08-02] MEDS ORDERED: propofol inj 20 ML IV ONE ×2 (18:38)
[2023-08-02] MEDS: BUPIVAcaine/PF 2.5 mg/ml (0.25%) 30ml vial IJ ONE (18:55)
[2023-08-02] MEDS: heparin 10,000 units/1 ML INJ IV ONE (18:56)
[2023-08-02] MEDS: acetaminophen 1,000mg/100ml IV 100 ML IV ONE (20:37)
[2023-08-02] MEDS: HYDROcodone/acetaminophen 5mg/325mg tablet PO ONE (20:38)
== END 2023-08-02 21:10 | disposition home or self-care (01) ==
LOC: PAS 11:31
PROVIDERS: ATTEND Surgery
DX: E11.22 Type 2 diabetes mellitus with diabetic chronic kidney disease (principal); I12.0 Hypertensive chronic kidney disease with stage 5 chronic kidney disease or end stage renal disease; N18.6 End stage renal disease; G47.33 Obstructive sleep apnea (adult) (pediatric); F43.10 Post-traumatic stress disorder, unspecified; M10.9 Gout, unspecified; Z88.8 Allergy status to other drugs, medicaments and biological substances; Z90.49 Acquired absence of other specified parts of digestive tract; Z98.890 Other specified postprocedural states; Z79.4 Long term (current) use of insulin; Z79.899 Other long term (current) drug therapy; Z99.2 Dependence on renal dialysis
CPT/HCPCS: 36415; 36830; 80047; 80053; 81001; 85025; 87088; 93005; C1768; J0131; J0690; J1644; J2250; J2405; J2704; J3010; J3490; J7030; J7040; J7120; Z7506; Z7508; Z7512; A4215; A4618; A6446; A7000